=== PATIENT | female | born 2000 | race Hispanic/Latino ===

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

== ENCOUNTER 2019-03-04 00:51 | Inpatient (IN) | payer OTHER ==
[2019-03-04] MEDS ORDERED: CARBOPROST TROME 250 MCG/ML IM ONE (01:33)
[2019-03-04 01:34] LABS: Absolute Lymphocytes (CBC) 1.9 K/uL (0.7-4.9); Basophils % 0.5 % (0-1.3); Hematocrit 25.1 % (36.0-45.0); MPV 8.7 fL (7.6-11.3); RBC Red Blood Cell Count 2.99 M/uL (3.86-4.86)
[2019-03-04] MEDS ORDERED: METHYLERGONOVINE 0.2MG/ML AMP IM ONE (01:34)
[2019-03-04] MEDS ORDERED: CARBOPROST TROME 250 MCG/ML IM PRN (02:23)
[2019-03-04] MEDS ORDERED: METHYLERGONOVINE 0.2 MG TAB PO PRN (02:23)
[2019-03-04] MEDS ORDERED: NALOXONE 0.4 MG/ML VIAL IV PRN ×2 (02:23→02:49)
[2019-03-04] MEDS ORDERED: METHYLERGONOVINE 0.2MG/ML AMP IM PRN (02:23)
[2019-03-04] MEDS ORDERED: ONDANSETRON 4 MG (ODT) TAB PO PRN (02:23)
--- NOTE | 2019-03-04 02:28 | P.BOP ---
Preoperative diagnosis: 36 wk , placental abrubtion Postoperative diagnosis: same, viable female , breech presentation Primary procedure: , breech delivery Estimated blood loss: 1000ml Specimen: placenta Anesthesia: General Complications: None Transferred to: Other (271) Condition: Good
[2019-03-04] MEDS ORDERED: FENTANYL CITR 250 MCG/5 ML ONE (02:34)
[2019-03-04] MEDS ORDERED: SUCCINYLCHOLINE 20 MG/ML (10 ML) IV ONE (02:35)
[2019-03-04] MEDS ORDERED: NEOSTIGMINE 1 MG/ML -10 ML VIAL ONE (02:35)
[2019-03-04] MEDS ORDERED: GLYCOPYRROLATE 0.2 MG/ML SYR ONE (02:35)
[2019-03-04] MEDS ORDERED: ROCURONIUM 50 MG/5 ML VIAL IV ONE (02:36)
[2019-03-04] MEDS ORDERED: OXYTOCIN 10 UNIT/ML ML IV ONE (02:36)
[2019-03-04] MEDS ORDERED: MORPHINE/NS PCA 50 MG/50 ML PCA.SYRING IV PRN (02:49)
[2019-03-04] MEDS ORDERED: CEFAZOLIN 2 GM in NA CHLORIDE 0.9% 100 ML IVPB ONE (02:59)
[2019-03-04] MEDS: OXYTOCIN/LR 20 UNIT/1,000 ML BAG IV SCH ×4 (03:00→19:20)
[2019-03-04] MEDS ORDERED: MORPHINE 4 MG/ML SYR ONE (03:18)
[2019-03-04] MEDS ORDERED: CEFAZOLIN/SWI 2gm 2 GM/20 ML SYR ONE (03:48)
[2019-03-04 04:07] VITALS: BMI 31.8
--- NOTE | 2019-03-04 06:41 | PREOPHP ---
Date of Admission: 03/04/2019 History Of Present Illness: Ms. Esquivel is 18-year-old female, 1, para 0, at appr oximately 36 plus weeks gestation. She has been followed through [facility] with complications of labor. She presents with spontaneous rupture of membranes, started Labor and Delivery with complaint s of spontaneous rupture of membranes at our Labor and Delivery Unit. On initial exam, large amount of blood was noted. Baby's heart rate was below 100. Because of this, she was taken immediately to the back for surgery. Past Medical History: Includes no prior hospitalizations, accidents, illnesses, injuries other than admission for labor during this . Medications: She is on no medications other than vitamins. Allergies: HAS NO KNOWN ALLERGIES. Social History: She does not smoke. Family History: Noncontributory. Review of Systems: Reports no recent cough, cold, fever, or chills. No recent nausea or vomiting. No urine symptoms or bowel issues. Physical Examination: General: Reveals pale appearing female, in moderate discomfort. Neck: Supple without adenopathy or thyromegaly. Lungs: Clear. Cardiac: Regular rate and rhythm without murmurs. Breasts: Not examined. Abdomen: Estimated weight of 6 pounds. Pelvic: Not performed by me. Extremities: No cyanosis, clubbing, or edema. Impression: 36+ week , spontaneous rupture of membranes with probable placental abruption. Plan: We will plan immediate section. Preparations are being made currently. YAEL/LAURE Voice ID: [id number]
[2019-03-04] MEDS ORDERED: OXYTOCIN/LR 20 UNIT/1,000 ML BAG IV SCH (12:00)
[2019-03-04] MEDS ORDERED: METHYLERGONOVINE 0.2 MG TAB PO SCH (12:00)
[2019-03-04] MEDS ORDERED: Ringers Lactate 1,000 ML IV ONE (12:34)
[2019-03-04 13:01] LABS: Absolute Lymphocytes (CBC) 1.1 K/uL (0.7-4.9); Basophils % 0.3 % (0-1.3); Hematocrit 20.3 % (36.0-45.0); Lymphocytes % 10.6 % (15.3-44.8); MPV 8.4 fL (7.6-11.3)
[2019-03-04] MEDS ORDERED: NA CHLORIDE 0.9% 500 ML ONE (15:32)
[2019-03-04] MEDS ORDERED: NA CHLORIDE 0.9% 1,000 ML IV SCH (16:00)
[2019-03-04] MEDS: METHYLERGONOVINE 0.2 MG TAB PO SCH ×2 (16:22→20:30)
--- NOTE | 2019-03-04 17:46 | OP ---
Surgeon: Abdullahi Sarkar MD Anesthesiologist: Dr. Reymundo Hernandez. Preoperative Diagnosis: 35+ week , placental abruption. Procedure: Primary section with general endotracheal anesthesia. Postoperative Diagnosis: 35+ week , placental abruption, delivery of viable female in dat breech presentation. Description Of Procedure: After the patient was prepped and draped for abdominal surgery, a general endotracheal anesthesia was obtained. A low transverse abdominal incision was made, carried down to the fascia. The fascia was incised with a combination of sharp and blunt dissection. This was from the underlying rectus muscles. These were divided in the midline. Peritoneum identified and incised. A bladder flap was created after incision of the vesicouterine peritoneum. A low-transverse uterine incision was made. Large blood clot was encountered. A 5 pounds 3 ounces female was delivered in dat breech presentation. The cord was clamped, cut, and the placed in a warmer attended to by nursing staff and Dr. Reymundo Hernandez, Anesthesia. Apgars were 4 and 7. Placenta was spontaneously expelled. Uterus was exteriorized. Uterus was closed in 2 layers with 0 Vicryl suture in a running nonlocking fashion, second layer used to imbricate the first. Vesicouterine peritoneum was reapproximated with a running suture of 3-0 Vicryl. The uterus was returned to peritoneal cavity, which was cleaned of amniotic fluid, debris, and blood clot. The rectus muscles were approximated in the midline with simple sutures of 0 Vicryl. The fascia was closed with a running suture of #1 Vicryl from either margin to the middle. Subcutaneous tissue closed with interrupted sutures of 3-0 Vicryl, and a subcuticular suture of 4-0 Monocryl was used to close the skin. The patient received 2 g of Ancef for antibiotic prophylaxis postoperatively. She was taken to recovery room in satisfactory condition with sponge and needle counts correct x2. The patient had SCDs in place and Wasserman catheter in place. Estimated total blood loss approximately 1000 cc. YAEL/LAURE Voice ID: [id number] Report ID: [id number] OMAR
[2019-03-05] MEDS: METHYLERGONOVINE 0.2 MG TAB PO SCH ×2 (00:20→04:35)
[2019-03-05 01:05] LABS: Hematocrit 23.9 % (36.0-45.0)
[2019-03-05] MEDS: OXYTOCIN/LR 20 UNIT/1,000 ML BAG IV SCH ×2 (01:40→11:12)
[2019-03-05 02:40] LABS: RPR (Rapid Plasma Reagin) NON-REACT (NON-REACT)
[2019-03-05 06:07] LABS: Absolute Lymphocytes (CBC) 1.4 K/uL (0.7-4.9); Basophils % 0.3 % (0-1.3); Hematocrit 25.2 % (36.0-45.0); Lymphocytes % 10.6 % (15.3-44.8); MPV 8.4 fL (7.6-11.3); RBC Red Blood Cell Count 2.92 M/uL (3.86-4.86)
[2019-03-05] MEDS ORDERED: Oxycodone HCl/Acetaminophen 1 TAB TAB PO PRN (06:30)
--- NOTE | 2019-03-05 06:34 | P.PN ---
Date of Service: 03/05/19 S-No complaints O-Pt received 2 units of PRBC's, bandage dry, vs stable, abdomen soft, post transfusion hct noted A-Satisfactory P-ambulate, d/c choi, advance diet, possible transfuse one more unit depending on how she is able to ambulate etc.
[2019-03-05] MEDS: Oxycodone HCl/Acetaminophen 1 TAB TAB PO PRN ×2 (11:12→19:52)
[2019-03-06] MEDS: Oxycodone HCl/Acetaminophen 1 TAB TAB PO PRN (06:34)
[2019-03-06 07:37] VITALS: BP 120/71; TEMP 99.5
[2019-03-06] MEDS ORDERED: MEASLES,MUMPS,RUBELLA VAC 0.5ML SQVAC ONE (08:59)
[2019-03-09 06:12] LABS: HBsAG Nonreactive (Nonreactive)
--- NOTE | 2019-03-09 09:44 | DS ---
Date of Discharge: 03/06/2019 Final Hospital Discharge Diagnoses: Approximately 35 and 6/7th weeks gestation, placental abruption, breech presentation, delivery by primary section. Complications: Iron deficiency anemia, blood loss anemia. Procedures: General endotracheal anesthesia, primary section, delivery by primary section, delivery of breech presentation . Hospital Course: The patient is a 18-year-old female, 1, para 0, at 35+ weeks gesta tion followed through the [facility]. She presented with vaginal bleeding. Diagnosis of placental abruption was made. She was taken immediately to section where she delivered a 5 pounds 3-o unce female , Apgars 4 and 7. Immediate postoperative course was complicated by anemia, treate d with transfusion of 2 units of packed red blood cells. She was dismissed on the second postoperati ve day to be seen back in my office in 1 week and final visit through the [facility] in 6 weeks. She was dismissed with prescription for Tylenol No. 3, #15, for pain relief. Lab work obtai samuel during this hospital stay included an admission hemoglobin and hematocrit of 9.1 and 25.1. She o nly received 2 units of packed red blood cells. Dismissal hemoglobin and hematocrit of 8.7 and 25.2. She was to continue taking her vitamins and had an iron tablet. She is RPR nonreactive an d is B positive blood type. YAEL/LAURE Voice ID: [id number] Report ID: [id number]
== END 2019-03-06 12:00 | disposition home or self-care (01) | DRG 788 ==
LOC: LAB 00:51 → 2ND-WC 01:24
PROVIDERS: ADMIT Specialist; ATTEND Specialist
PROC: 30283B1 Transfusion of Nonautologous 4-Factor Prothrombin Complex Concentrate into Vein, Percutaneous Approach (ICD-10-PCS; 2019-03-04)
PROC: 10D00Z1 Extraction of Products of Conception, Low, Open Approach (ICD-10-PCS; principal; 2019-03-04 01:30)
DX: O45.93 Premature separation of placenta, unspecified, third trimester (principal); O32.1XX0 Maternal care for breech presentation, not applicable or unspecified; O99.02 Anemia complicating childbirth; D50.9 Iron deficiency anemia, unspecified; Z3A.35 35 weeks gestation of pregnancy; Z37.0 Single live birth; Z23 Encounter for immunization
CPT/HCPCS: 36415; 36430; 85014; 85018; 85025; 86592; 86850; 86900; 86901; 87340; 88307; 90471; 90707; J0330; J0690; J2210; J2270; J2590; J2710; J3010; P9016

== ENCOUNTER 2022-03-03 04:13 | Emergency (ER) | payer OTHER ==
--- OUTSIDE RECORDS SUMMARY | 2022-03-03 04:16 | XMS REPORT | Continuity of Care Document ---
:2000 Author Organization [facility] t Address [address] [place] [address] Care Team Providers Name Role Phone WESTON SKY Primary Care Physician Unavailable WESTON SKY Attending Clinician Unavailable Visit, Camilla Nurse Attending Clinician Unavailable Weston Cagle Attending Clinician [phone] Payers Payer Name Policy Type Policy Number Effective Date Expiration Date [facility] [employer] [id number] 2016 HEALTH 00:00:00 Problems Condition Condition Condition Status Onset Resolution Last Treating Co mments Source Name Details Category Date Date Treatment Clinician Date Other Other Disease Active Univers general general 1-05 [place] of counseling [place] advice and advice 00 Me dical for for Branch contracept contracept khalif khalif management management Need for Need for Disease Active Unive rs HPV HPV 1-05 ity of vacc[place] Medical Branch Allergies, Adverse Reactions, Alerts Allergy Allergy Status Severity Reaction(s) Onset Inactive Treating Comm ents Source Name Type Date Date Clinician NO KNOWN Drug Active Univers ALLERGIE Class ity of S [facility] Social History Social Habit Start Date Stop Date Quantity Comments Source Exposure to Not sure [facility] SARS-CoV-2 (event) [facility] Alcohol intake 2020-09-12 2020-09-12 Current [facility] 00:00:00 00:00:00 non-drinker of [facility] alcohol Branch (finding) Tobacco use and 2020-06-13 2020-06-13 Never used Universit y of exposure 00:00:00 00:00:00 [facility] Cigarettes smoked 2020-06-13 2020-06-13 Univers ity of current (pack per 00:00:00 00:00:[address] [facility] ) - Reported Branch History of tobacco 2019-08-31 Cigarette Smoker University of use 00:00:00 [facility] Sex Assigned At [birth year] Universit y of 00:00:00 00:00:00 [facility] Smoking Status Start Date Stop Date Source Current every day smoker 2020-06-13 00:00:00 Uni versity of [facility] Medications Ordered Filled Start Stop Current Ordering Indication Dosage Frequency Signature Comments Components Source Medication Medication Date Date Medication? Clinician (SIG) Name Name medroxyPROG No [id number] 150mg 150 mg, Univers ESTERone 06-13 Intramuscu ity of (DEPO-PROVE 21:45: 21:45 margaret [place] ) 00 :00 [id number], Medical injection 4 doses, Branch 150 mg First dose on Fri06/13/20 at 1545, Last dose on Fri02/20/21 at 1545, Routine docusate 2019-06 Yes [id number] 240mg Take 1 U nivers calcium 240 1-26 capsule by it y of mg capsule 00:00: mouth [place] 00 daily as Medical needed for Branch Constipati on. ferrous 2019-06 Yes [id number] 325mg Take 1 Un mavis sulfate 325 1-26 tablet by ity of mg (65 mg 00:00: mouth 2 [place] iron) 00 (two) Medical tablet times Branch daily. ibuprofen 2019-06 Yes [id number] 600mg Take 1 Univers 600 mg 1-26 tablet by ity of tablet 00:00: mouth [place] 00 every 6 Medical (six) Branch hours as needed (Pain). Take with food or milk. 2019-06 Yes [id number] 1{tbl} Take 1 Univers vitamin 1-26 tablet by ity of w/FA tablet 00:00: mouth [place] 00 daily. Medical Branch ascorbic Yes [id number] 500mg Take 1 U nivers acid, 8-25 tablet by ity of vitamin C, 00:00: mouth [place] 500 mg 00 (three) Medical tablet times [place] daily. ferrous 2019- Yes [id number] 325mg Take 1 Un mavis sulfate 325 8-25 tablet by ity of mg (65 mg 00:00: mouth 2 [place] iron) 00 (two) Medical tablet times [place] daily. Immunizations Ordered Filled Immunization Date Status Comments Sourc e Immunization Name Name [facility] 2020-12-26 Completed [facility] 00:00:00 [facility] HPV9 2020-06-13 Completed [facility] 00:00:00 [facility] HPV9 2020-05-03 Completed [facility] 00:00:00 [facility] Influenza Virus 2020-03-20 Completed [facility] Vaccine Quad .5 mL 00:00:00 [facility] 6+ MO Branch TDAP 2020-02-17 Completed [facility] 00:00:00 [facility] TDAP (ADACEL) 2019-01-12 Completed [facility] VACCINE 00:00:00 [facility] Vital Signs Vital Name Observation Time Observation Value Comments Source Systolic blood 2021-05-28 20:18:00 96 mm[Hg] Univer sity of pressure [facility] Diastolic blood 2021-05-28 20:18:00 60 mm[Hg] Unive rsity of pressure [facility] Heart rate 2021-05-28 20:18:00 70 /min [facility] Body temperature 2021-05-28 20:18:00 36.67 Dorothy [facility] Respiratory rate 2021-05-28 20:18:00 16 /min [facility] Body height 2021-05-28 20:18:00 162.6 cm [facility] Body weight 2021-05-28 20:18:00 57.153 kg [facility] BMI 2021-05-28 20:18:00 21.63 kg/m2 [facility] Procedures Procedure Date / Time Performed Performing Clinician Moise e POCT TEST 2021-05-28 00:00:00 [facility] Start End Encounter Admission Attending Care Care Encounter Source Date/Time Date/Time Type Type Clinicians Facility Department ID 2021-08-20 2021-08-20 Outpatient R [facility] [id number] [facility] 09:00:00 09:00:00 WESTON baca [facility] 2021-05-28 2021-05-28 Nurse Visit, Grabiel-Rmchp Nurse [facility] [id number] [facility] 14:00:00 14:31:52 Visit Weston Sky REGISTERED HEALTH NURSE [id number] ity [facility] [id number] Kelvin as MATERNAL [id number] Med ical & CHILD [address] [place] [address] Results Test Description Test Time Test Comments Results Result Comments Source POCT TEST 2021-05-28 20:25:00 Test Item Value Reference Range Interpretation Comme nts POCT PREG (test code = 1605) Negative On board controls acceptable with C Line (test code = 3574) Yes POCT PREG LOT # (test code = 3575) POCT PREG TEST DATE (test code = 3576) [facility]
[2022-03-03] MEDS ORDERED: NA CHLORIDE 0.9% 1,000 ML ONE ×2 (04:36→07:45)
[2022-03-03 04:49] LABS: Absolute Lymphocytes (CBC) 1.5 K/uL (0.7-4.9); Hematocrit 33.8 % (36.0-45.0); MCV 87.9 fL (80-100); MPV 7.5 fL (7.6-11.3); RBC Red Blood Cell Count 3.85 M/uL (3.86-4.86)
[2022-03-03 04:56] LABS: Urine Blood 3+ (Negative); Urine Glucose Negative (Negative); Urine Protein 3+ (Negative); Urine Specific Gravity 1.015 (1.005-1.030)
[2022-03-03 04:58] LABS: Potassium 3.6 mmol/L (3.5-5.1)
[2022-03-03 05:15] LABS: Barbiturates NEGATIVE (NEGATIVE); Benzodiazepines NEGATIVE (NEGATIVE); Cocaine NEGATIVE (NEGATIVE); METHAMPHETAM NEGATIVE (NEGATIVE); Methadone NEGATIVE (NEGATIVE); Opiates NEGATIVE (NEGATIVE); Phencyclidine NEGATIVE (NEGATIVE); THC Cannibis NEGATIVE (NEGATIVE)
[2022-03-03] MEDS ORDERED: CEFTRIAXONE 1000 MG/VIAL ONE (05:55)
[2022-03-03 06:02] LABS: Urine Specific Gravity/Preg 1.015 (1.005-1.030)
--- NOTE | 2022-03-03 09:54 | ER ---
Nurse's Notes [facility] Name: Nilsa Esquivel Age: 21 yrs Sex: Female : 2000 Arrival Date: 03/03/2022 Time: 04:15 Bed 4 Private MD: Diagnosis: Alcohol use, unspecified with intoxication;Possible drug use;Nausea and vomiting Presentation: 03/03 04:18 Chief complaint: EMS states: pt was found in [employer] bathroom after a reported night of as6 drinking. Coronavirus screen: At this time, the client does not indicate any symptoms associated with coronavirus-19. Ebola Screen: No symptoms or risks identified at this time. Initial Sepsis Screen: Does the patient meet any 2 criteria? No. Patient's initial sepsis screen is negative. Does the patient have a suspected source of infection? No. Patient's initial sepsis screen is negative. Risk Assessment: Do you want to hurt yourself or someone else? Unable to obtain. Onset of symptoms was March 03, 2022. 04:18 Method Of Arrival: EMS: [facility] as6 04:18 Acuity: MILI 2 as6 04:35 Care prior to arrival: Medication(s) given: Normal saline infusion, 500 mL, Phenergan, as6 25 mg, IV initiated. 20 GA, in the left antecubital area. 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 - Social history:: Smoking status: unknown. Screenin:21 Abuse screen: Denies threats or abuse. Denies injuries from another. Nutritional as6 screening: No deficits noted. Tuberculosis screening: No symptoms or risk factors identified. Fall Risk None identified. Assessment: 04:20 General: Appears unkempt, Behavior is drowsy, uncooperative, Smells of alcohol. Pain: as6 Denies pain. Neuro: Level of Consciousness is lethargic. Respiratory: Respiratory effort is even, unlabored. 04:21 General: pt friend reported they were drinking and met some guys and she thinks pt as6 drank an unknown substance from said guyaneli . 05:50 General: Appears comfortable, unkempt, Behavior is drowsy, quiet, pt eyes closed, low aa9 beverly's position, lights off in room, blanket over pt covering head, breathing equal and regular, does not appear distressed. . 06:52 General: Appears comfortable, Behavior is drowsy, quiet. General: pt eyes closed, aa9 breathing equal and regular, low beverly's position in bed, no apparent distress . Respiratory: Airway is patent Respiratory effort is even, unlabored, Respiratory pattern is regular, symmetrical. 07:15 General: Appears in no apparent distress. comfortable, Behavior is cooperative, quiet. kr3 08:15 Reassessment: No changes from previously documented assessment. Patient and/or family kr3 updated on plan of care and expected duration. Pain level reassessed. 09:15 Reassessment: No changes from previously documented assessment. Patient and/or family kr3 updated on plan of care and expected duration. Pain level reassessed. 10:26 Reassessment: No changes from previously documented assessment. Patient and/or family kr3 updated on plan of care and expected duration. Pain level reassessed. Vital Signs: 04:18 BP 91 / 55; Pulse 86; Resp 16; Pulse Ox 99% on R/A; Weight 60.78 kg; as6 04:30 Pulse 84; Resp 16 S; Pulse Ox 96% on R/A; aa9 05:16 BP 97 / 67; Pulse 83; Resp 16 S; Pulse Ox 96% on R/A; as6 05:54 BP 106 / 64; Pulse 77; Resp 16 S; Pulse Ox 97% on R/A; as6 06:30 BP 96 / 67; Pulse 77; Resp 17 S; Pulse Ox 98% on R/A; as6 07:30 BP 109 / 76; Pulse 69; Resp 16; Pulse Ox 97% ; kr3 08:30 BP 95 / 59; Pulse 79; Resp 16; Pulse Ox 98% on R/A; kr3 09:30 BP 97 / 52; Pulse 60; Resp 17; Pulse Ox 98% on R/A; kr3 10:22 BP 100 / 63; Pulse 84; Resp 17; Pulse Ox 99% on R/A; kr3 ED Course: 04:15 Patient arrived in ED. aa9 04:17 Giselle Curry MD is Attending Physician. sd2 04:18 Christopher Shah, WINSTON is Primary Nurse. as6 04:20 Triage completed. as6 04:20 Arm band placed on. as6 04:21 Bed in low position. Call light in reach. Side rails up X2. Client placed on continuous as6 cardiac and pulse oximetry monitoring. NIBP monitoring applied. Warm blanket given. 04:35 CBC with Diff Sent. as6 04:35 BMP Sent. as6 04:35 Ethanol Sent. as6 04:35 Maintain EMS IV. Dressing intact. Good blood return noted. Site clean \T\ dry. Gauge \T\ as 6 site: 20g LAC. 04:59 Urine Drug Screen Sent. aa9 04:59 Ethanol Sent. aa9 07:32 Attending Physician role handed off by Giselle Curry MD rn 07:32 Mohamud Cueto MD is Attending Physician. rn 08:15 IV discontinued, intact, bleeding controlled, No redness/swelling at site. Pressure kr3 dressing applied. 08:15 Inserted saline lock: 22 gauge in right antecubital area, using aseptic technique. kr3 10:23 No provider procedures requiring assistance completed. kr3 Administered Medications: 04:35 Drug: NS 0.9% 1000 ml Route: IV; Rate: 1 bolus; Site: left antecubital; as6 05:49 Follow up: Response: No adverse reaction; IV Status: Completed infusion; IV Intake: aa9 1000ml 05:49 Drug: Rocephin (cefTRIAXone) 1 grams Route: IV; Rate: bolus; Site: left antecubital; aa9 06:19 Follow up: Response: No adverse reaction; IV Status: Completed infusion; IV Intake: [id number] 07:48 Drug: NS 0.9% 1000 ml Route: IV; Rate: 1 bolus; Site: left antecubital; kr3 10:23 Follow up: Response: No adverse reaction; IV Status: Completed infusion; IV Intake: kr3 1000ml Medication: 04:21 VIS not applicable for this client. as6 Intake: 05:49 IV: 1000ml; Total: 1000ml. aa9 06:19 IV: 10ml; Total: 1010ml. aa9 10:23 IV: 1000ml; Total: 2010ml. kr3 Outcome: 09:54 Discharge ordered by . rn 10:23 Discharged to home ambulatory. kr3 10:23 Condition: stable 10:23 Discharge instructions given to patient, Instructed on discharge instructions, safety practices, Demonstrated understanding of instructions. 10:24 Patient left the ED. kr3 Signatures: Mohamud Cueto MD MD rn Slawson, Ashby, RN RN as6 Giselle Curry MD MD sd2 Ingris Walsh RN RN aa9 Cadence Mays RN RN kr3
--- NOTE | 2022-03-03 09:54 | EDPHYS ---
Physician Documentation [facility] Name: Nilsa Esquivel Age: 21 yrs Sex: Female : 2000 Arrival Date: 03/03/2022 Time: 04:15 Bed 4 Private MD: ED Physician Mohamud Cueto HPI: 03/03 04:20 This 21 yrs old Female presents to ER via EMS with complaints of AMS. sd2 04:20 21 yo F presents via EMS with CC of AMS. EMS reports patient was found unresponsive in sd2 [employer] bathroom tonight with her friend who was also unresponsive and brought to the ER. Pt did have nausea and vomiting en route and was given 25 mg of Phenergan COLD ROLLER with EMS. Pt was A\T\Ox3 with EMS but is unable to answer most of my questions here and appears drowsy. Therefore, further history is limited at this time. Pt's friend also in the ER reports they went to a [place] and drank ETOH tonight and were given open drinks by 2 guys but chose not to drink them.. 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 - Social history:: Smoking status: unknown. ROS: 04:20 Unable to obtain ROS due to altered mental status. sd2 Exam: 04:20 Constitutional: This is a well developed, well nourished patient who is awake, alert, sd2 and in no acute distress. Head/Face: Normocephalic, atraumatic. Eyes: EOMI, normal conjunctiva bilaterally Chest/axilla: Normal chest wall appearance and motion. Nontender with no deformity. Cardiovascular: Regular rate and rhythm with a normal S1 and S2. No gallops, murmurs, or rubs. 2+ distal pulses. Respiratory: Lungs have equal breath sounds bilaterally, clear to auscultation and percussion. No rales, rhonchi or wheezes noted. No increased work of breathing, no retractions or nasal flaring. Abdomen/GI: Soft, non-tender, with normal bowel sounds. No guarding or rebound. No evidence of tenderness throughout. Skin: Warm, dry with normal turgor. Normal color with no rashes, no lesions, and no evidence of cellulitis. MS/ Extremity: Pulses equal, no cyanosis. Neurovascular intact. Full, normal range of motion. Ambulatory without difficulty. Neuro: Pt observed moving all 4 extremities equally with good strength, normal sensation, pt otherwise uncooperative with exam Vital Signs: 04:18 BP 91 / 55; Pulse 86; Resp 16; Pulse Ox 99% on R/A; Weight 60.78 kg; as6 04:30 Pulse 84; Resp 16 S; Pulse Ox 96% on R/A; aa9 05:16 BP 97 / 67; Pulse 83; Resp 16 S; Pulse Ox 96% on R/A; as6 05:54 BP 106 / 64; Pulse 77; Resp 16 S; Pulse Ox 97% on R/A; as6 06:30 BP 96 / 67; Pulse 77; Resp 17 S; Pulse Ox 98% on R/A; as6 07:30 BP 109 / 76; Pulse 69; Resp 16; Pulse Ox 97% ; kr3 08:30 BP 95 / 59; Pulse 79; Resp 16; Pulse Ox 98% on R/A; kr3 09:30 BP 97 / 52; Pulse 60; Resp 17; Pulse Ox 98% on R/A; kr3 10:22 BP 100 / 63; Pulse 84; Resp 17; Pulse Ox 99% on R/A; kr3 MDM: 04:17 Patient medically screened. sd2 04:20 Differential Diagnosis ETOH, substance abuse, doubt ICH, dehydration among others. Data sd2 reviewed: vital signs, nurses notes, EMS record. 09:52 Counseling: I had a detailed discussion with the patient and/or guardian regarding: the rn historical points, exam findings, and any diagnostic results supporting the discharge/admit diagnosis, lab results, radiology results, the need for outpatient follow up, to return to the emergency department if symptoms worsen or persist or if there are any questions or concerns that arise at home. Response to treatment: the patient's symptoms have markedly improved after treatment, patient is well hydrated. Ambulatory to bathroom, wide awake now, will dc home. , and as a result, I will discharge patient. Special discussion: I discussed with the patient/guardian in detail that at this point there is no indication for admission to the hospital. It is understood, however, that if the symptoms persist or worsen the patient needs to return immediately for re-evaluation. 03/03 04:17 Order name: CBC with Diff; Complete Time: 05:05 sd2 03/03 04:17 Order name: BMP; Complete Time: 05:05 sd2 03/03 04:17 Order name: Ethanol; Complete Time: 05:16 sd2 03/03 04:17 Order name: Urine Drug Screen; Complete Time: 05:16 sd2 03/03 04:57 Order name: Urine Dipstick-Ancillary; Complete Time: 05:05 EDMS 03/03 05:02 Order name: Urine --Ancillary (enter results); Complete Time: 06:07 wm Administered Medications: 04:35 Drug: NS 0.9% 1000 ml Route: IV; Rate: 1 bolus; Site: left antecubital; as6 05:49 Follow up: Response: No adverse reaction; IV Status: Completed infusion; IV Intake: aa9 1000ml 05:49 Drug: Rocephin (cefTRIAXone) 1 grams Route: IV; Rate: bolus; Site: left antecubital; aa9 06:19 Follow up: Response: No adverse reaction; IV Status: Completed infusion; IV Intake: [id number] 07:48 Drug: NS 0.9% 1000 ml Route: IV; Rate: 1 bolus; Site: left antecubital; kr3 10:23 Follow up: Response: No adverse reaction; IV Status: Completed infusion; IV Intake: kr3 1000ml Disposition Summary: 03/03/22 09:54 Discharge Ordered Location: Home rn Problem: new rn Symptoms: have improved rn Condition: Stable rn Diagnosis - Alcohol use, unspecified with intoxication rn - Possible drug use rn - Nausea and vomiting rn Followup: sd2 - With: Private Physician - When: 2 - 3 days - Reason: Recheck today's complaints, Continuance of care, Re-evaluation by your physician Discharge Instructions: - Discharge Summary Sheet sd2 - Alcohol Intoxication sd2 - Nausea and Vomiting, Adult sd2 Forms: - Medication Reconciliation Form rn - Thank You Letter rn - Antibiotic furnace caretaker - Prescription Opioid Use rn Signatures: Dispatcher [employer] Mohamud West MD MD rn Slawson, Ashby, RN RN [id number] Giselle Curry MD MD sd2 Ingris Walsh, RN RN aa9 Cadence Mays RN RN kr3 Amy Bee, ERUM DANIELSON sb4
[2022-03-04 21:00] VITALS: BP 100/63; O2SAT 99
== END 2022-03-03 10:24 | disposition home or self-care (01) ==
LOC: ER 04:13
DX: F10.929 Alcohol use, unspecified with intoxication, unspecified (principal); R11.2 Nausea with vomiting, unspecified
CPT/HCPCS: 96365; 96361; 85025; 80048; 36415; 80320; 81025; 81003; 80307; 99284; J7030 ×2

== ENCOUNTER 2025-04-01 09:04 | Emergency (ER) | payer SELFPAY ==
--- NOTE | 2025-04-01 10:12 | RAD REPORT ---
EXAMINATION: Transvaginal OB COMPARISON: None. HISTORY: VAGINAL BLEEDING TECHNIQUE: Real-time ultrasound was performed through the pelvis. A transvaginal scan was performed t o better visualize the intrauterine contents and adnexa. FINDINGS: Uterus is normal size measuring 8.7 x 5.6 x 4.8 cm. Endometrium appears thickened measuring 13 mm. No IUP is seen. Both ovaries are normal in size, shape and echotexture with normal blood flow. No pelvic ascites. IMPRESSION: Mildly thickened endometrial stripe. No IUP is confirmed. In the setting of a positive hCG level, this would indicate of unknown location. Serial hCG level measurements and follow-up pelvic sonography in 7-10 days would be recommended.
[2025-04-01 10:44] LABS: Absolute Lymphocytes (CBC) 1.6 K/uL (0.7-4.9); Hematocrit 39.6 % (36.0-45.0); Hemoglobin 13.3 g/dL (12.0-15.0); MCH 30.0 pg (27.0-35.0); MCHC 33.6 g/dL (32.0-36.0); MCV 89.5 fL (80-100); MPV 8.1 fL (7.6-11.3); Nucleated RBC Absolute Count 0.0 (0-0); Nucleated Red Blood Cells % 0.0 % (0-0); RBC Red Blood Cell Count 4.42 M/uL (3.86-4.86); White Blood Count 9.10 thou/uL (4.3-10.9)
[2025-04-01 11:00] LABS: Sqamous Epithelial None Seen /HPF (None Seen); Urine Crystals Unidentified Many /HPF (None Seen); Urine Culture Reflex Order REFLEXED; Urine Microscopic Reflex YN ORDER UMIC
[2025-04-01 11:07] LABS: Anion Gap 8.8 mEq/L (5.0-15.0); BUN Blood Urea Nitrogen 12.0 mg/dL (7-18); Glucose Level 89.0 mg/dL (74-106); HCG, Quantitative 17.0 mIU/mL (1-3); Potassium 3.8 mEq/L (3.5-5.1)
--- NOTE | 2025-04-01 11:47 | EDPHYS ---
Physician Documentation [facility] Name: Nilsa Esquivel Age: 24 yrs Sex: Female : 2000 Arrival Date: 04/01/2025 Time: 09:04 Bed 6 Private MD: ED Physician Dmitriy Rai HPI: 04/01 09:23 This 24 yrs old Female presents to ER via Unassigned with complaints of dr5 Vaginal Bleeding, + Preg <12wks. 09:23 The patient presents to the emergency department with vaginal bleeding, that is light, dr5 with no clots. The estimated gestational age is 6 weeks. course: Ultrasound: the patient has not had an ultrasound. Patient is a 24-year-old female with no past medical history coming in with vaginal bleeding without clots that started this morning. Patient denies abdominal cramps. Patient reports being approximately 6 weeks and has first OB appointment this next Friday. Patient denies nausea, vomiting, diarrhea, dysuria.. RECORD PRESSMAN: 09:23 3, Full Term 2, 0, unknown dr5 11:54 LMP N/A - , Not ap3 Historical: - PMHx: 09:24 Asthma; dr5 - Immunization history:: Adult Immunizations unknown. - Infectious Disease History:: Denies. - Social history:: Smoking status: unknown. ROS: 09:24 Constitutional: as per hpi dr5 Exam: 09:24 Constitutional: This is a well developed, well nourished patient who is awake, alert, dr5 and in no acute distress. Head/Face: Normocephalic, atraumatic. Eyes: Pupils equal round and reactive to light, extra-ocular motions intact. Lids and lashes normal. Conjunctiva and sclera are non-icteric and not injected. Cornea within normal limits. Periorbital areas with no swelling, redness, or edema. Neck: Trachea midline, no thyromegaly or masses palpated, and no cervical lymphadenopathy. Supple, full range of motion without nuchal rigidity, or vertebral point tenderness. No Meningismus. Chest/axilla: Normal chest wall appearance and motion. Nontender with no deformity. No lesions are appreciated. Cardiovascular: Regular rate and rhythm with a normal S1 and S2. Normal PMI, no JVD. No pulse deficits. Respiratory: Lungs have equal breath sounds bilaterally, clear to auscultation. No rales, rhonchi or wheezes noted. No increased work of breathing, no retractions or nasal flaring. Abdomen/GI: Soft, non-tender, non-distended Back: No spinal tenderness. No costovertebral tenderness. Full range of motion. Skin: Warm, dry with normal turgor. Normal color with no rashes, no lesions, and no evidence of cellulitis. MS/ Extremity: Pulses equal, no cyanosis. Neurovascular intact. Full, normal range of motion. Neuro: Awake and alert, GCS 15, oriented to person, place, time, and situation. Cranial nerves II-XII grossly intact. Motor strength 5/5 in all extremities. Sensory grossly intact. Cerebellar exam normal. Normal gait. Vital Signs: 09:24 BP 112 / 77; Pulse 53; Resp 16; Temp 97.9(O); Pulse Ox 99% on R/A; Weight 72.57 kg; ss Height 5 ft. 2 in. ; 11:52 BP 114 / 82; Pulse 51; Resp 17; Pulse Ox 100% ; ap3 09:24 Body Mass Index 29.26 (72.57 kg, 157.48 cm) ss MDM: 09:07 Medical Screening Exam initiated dr5 11:47 Differential diagnosis: threatened Ab, inevitable Ab, complete Ab, ectopic . dr5 Data reviewed: vital signs, nurses notes, lab test result(s), Beta HC CBC, white blood cell count, hemoglobin, hematocrit, platelets, electrolytes, sodium, potassium, chloride, serum bicarbonate, BUN, creatinine, serum glucose, urinalysis, bacteruria, hematuria, radiologic studies, ultrasound. Consideration of Admission/Observation Escalation of care including admission/observation considered. Escalation considered patient found to have ectopic . I considered the following discharge prescriptions or medication management in the emergency department I discussed and recommended Over The Counter medications. Care significantly affected by the following chronic conditions: Asthma. Care significantly affected by the following Social Determinants of Health: Poor access to healthcare and/or lack of insurance, Poor access to transportation, Problems related to employment. Counseling: I had a detailed discussion with the patient and/or guardian regarding the historical points, exam findings, and any diagnostic results supporting the discharge/admit diagnosis, the presence of at least one elevated blood pressure reading (>120/80) during this emergency department visit, lab results, radiology results, the need for outpatient follow up, for definitive care, an OB/Gyne specialist, to return to the emergency department if symptoms worsen or persist or if there are any questions or concerns that arise at home. Special discussion: I discussed with the patient/guardian in detail that at this point there is no indication for admission to the hospital. It is understood, however, that if the symptoms persist or worsen the patient needs to return immediately for re-evaluation. Based on the history and exam findings, there is no indication for further emergent testing or inpatient evaluation. I discussed with the patient/guardian the need to see the OB Gyne specialist for further evaluation of the symptoms. ED course: Recommended patient follow-up with RECORD PRESSMAN for repeat blood work and ultrasound. Discussed all labs and ultrasound results with patient and printed out and handed to patient myself. All questions answered. Strict ER precautions given. Will cover with abx for UTI.. 11:48 Data reviewed: lab test result(s), T\T\S - B Positive. dr5 04/01 09:23 Order name: Abo/rh Typing; Complete Time: 11:44 dr5 04/01 09:23 Order name: Basic Metabolic Panel; Complete Time: 11:08 dr5 04/01 09:23 Order name: CBC with Diff; Complete Time: 10:56 dr5 04/01 09:23 Order name: Quantitative Hcg; Complete Time: 11:08 dr5 04/01 09:25 Order name: UA Rfx Herber Cult if indicated; Complete Time: 11:06 dr5 04/01 11:05 Order name: Urine Culture EDLA 04/01 09:23 Order name: US Transvaginal Ob; Complete Time: 10:22 dr5 04/01 09:57 Order name: Abdomen Pelvis Scan\E\US; Complete Time: 11:22 EDMS 04/01 09:23 Order name: IV Saline Lock; Complete Time: 10:24 dr5 04/01 09:23 Order name: Labs collected and sent; Complete Time: 10:24 dr5 04/01 09:23 Order name: NPO; Complete Time: 09:30 dr5 Administered Medications: No medications were administered Disposition Summary: 04/01/25 11:47 Discharge Ordered Notes: Location: Home dr5 Condition: Stable dr5 Diagnosis - Abnormal uterine and vaginal bleeding, unspecified dr5 - UTI/ Urinary tract infection, site not specified dr5 Followup: dr5 - With: Emergency Department - When: As needed - Reason: Worsening of condition Followup: dr5 - With: Private Physician - When: 1 - 2 days - Reason: Recheck today's complaints, Continuance of care, Re-evaluation by your physician Discharge Instructions: - Discharge Summary Sheet dr5 - Threatened Miscarriage dr5 - Urinary Tract Infection, Adult, Jodf-[id number] dr5 Forms: - Medication Reconciliation Form dr5 - Antibiotic Education dr5 - Patient Portal Instructions dr5 - Leadership Thank You Letter dr5 Prescriptions: - Cephalexin 500 mg Oral Capsule - take 1 capsule ORAL route every 12 hours for 10 days; 20 capsule; Refills: 0, dr5 Product Selection Permitted Signatures: Dispatcher [employer] Violet Haywood RN RN Della Betts RN RN ap3 Reggie Nuñez, COLE-C TURNSTILE ATTENDANT-Cdr5 Corrections: (The following items were deleted from the chart) 09:23 09:23 Transvaginal Ob+US.RAD.BRZ ordered. EDMS EDMS
--- NOTE | 2025-04-01 11:47 | ER ---
Nurse's Notes [facility] Name: Nilsa Esquivel Age: 24 yrs Sex: Female : 2000 Arrival Date: 04/01/2025 Time: 09:04 Bed 6 Private MD: Diagnosis: Abnormal uterine and vaginal bleeding, unspecified;UTI/ Urinary tract infection, site not specified Presentation: 04/01 09:24 Chief complaint: Patient states: vaginal bleeding that began this morning. PT reports ss she is 5 weeks and is to have her first OB appt on Friday. Coronavirus screen: Client denies travel out of the [place] in the last 14 days. Ebola Screen: Patient denies exposure to infectious person. Patient denies travel to an Ebola-affected area in the 21 days before illness onset. Initial Sepsis Screen: Does the patient meet any 2 criteria? No. Patient's initial sepsis screen is negative. Does the patient have a suspected source of infection? No. Patient's initial sepsis screen is negative. Risk Assessment: Do you want to hurt yourself or someone else? Patient reports no desire to harm self or others. Onset of symptoms was April 01, 2025. 09:24 Method Of Arrival: Ambulatory ss 09:24 Acuity: MILI 3 ss INTERNATIONAL EXCHANGE COORDINATOR: 09:23 3, Full Term 2, 0, unknown dr5 11:54 LMP N/A - , Not ap3 Historical: - PMHx: 09:24 Asthma; dr5 - Immunization history:: Adult Immunizations unknown. - Infectious Disease History:: Denies. - Social history:: Smoking status: unknown. Screenin:53 [facility] ED Fall Risk Assessment (Adult) History of falling in the last 3 months, ap3 including since admission No falls in past 3 months (0 pts) Confusion or Disorientation No (0 pts) Intoxicated or Sedated No (0 pts) Impaired Gait No (0 pts) Mobility Assist Device Used No (0 pt) Altered Elimination No (0 pt) Score/Fall Risk Level 0 - 2 = Low Risk Oriented to surroundings, Maintained a safe environment, Educated pt \T\ family on fall prevention, incl call for assistance when getting out of bed, Assessed \T\ reinforced patient's understanding of fall precautions, Hourly rounding (assess needs \T\ fall precautionary measures) done, Used ambulatory aids as needed (educated on \T\ assisted with). Abuse screen: Denies threats or abuse. Nutritional screening: No deficits noted. Tuberculosis screening: No symptoms or risk factors identified. Assessment: 10:42 General: Appears in no apparent distress. Behavior is calm, cooperative, appropriate ap3 for age. Pain: Complains of pain in suprapubic area Pain currently is 6 out of 10 on a pain scale. Neuro: Level of Consciousness is awake, alert, obeys commands, Oriented to person, place, time, situation, Appropriate for age. Cardiovascular: Patient's skin is warm and dry. Respiratory: Airway is patent Respiratory effort is even, unlabored, Respiratory pattern is regular, symmetrical. : Reports vaginal bleeding that is. Vital Signs: 09:24 BP 112 / 77; Pulse 53; Resp 16; Temp 97.9(O); Pulse Ox 99% on R/A; Weight 72.57 kg; ss Height 5 ft. 2 in. ; 11:52 BP 114 / 82; Pulse 51; Resp 17; Pulse Ox 100% ; ap3 09:24 Body Mass Index 29.26 (72.57 kg, 157.48 cm) ED Course: 09:06 Patient arrived in ED. im 09:07 Dmitriy Rai MD is Attending Physician. sp3 09:07 Reggie Nuñez FNP-C is [facility]. dr5 09:24 Arm band placed on right wrist. ss 09:26 Triage completed. ss 09:55 US Transvaginal Ob In Process Unspecified. EDMS 09:57 Abdomen Pelvis Scan\E\US In Process Unspecified. EDMS 10:41 Initial lab(s) drawn, by me, sent to lab. Inserted saline lock: 22 gauge in right ap3 antecubital area, using aseptic technique. Blood collected. Flushed with 10 mL NS. 10:42 UA Rfx Herber Cult if indicated Sent. ap3 10:42 Abo/rh Typing Sent. ap3 10:42 Basic Metabolic Panel Sent. ap3 10:42 CBC with Diff Sent. ap3 10:43 Quantitative Hcg Sent. ap3 11:53 Patient has correct armband on for positive identification. Placed in gown. Bed in low ap3 position. Call light in reach. Side rails up X 1. Provided Education on: discharge instructions . Pulse ox on. NIBP on. :53 No provider procedures requiring assistance completed. IV discontinued, intact, ap3 bleeding controlled, No redness/swelling at site. Pressure dressing applied. Administered Medications: No medications were administered Medication: :53 VIS not applicable for this client. ap3 Outcome: 11:47 Discharge ordered by . dr5 :53 Discharged to home ap3 :53 Condition: good :53 Discharge instructions given to patient, Instructed on discharge instructions, follow up and referral plans. medication usage, :53 Demonstrated understanding of instructions, follow-up care, medications, Prescriptions given X 1, :54 Patient left the ED. ap3 Signatures: Dispatcher [employer] EDMS Blank Ortega, WINSTON RN aa5 Violet Rivas RN RN Della Betts RN RN ap3 Dmitriy Rai MD MD sp3 Aleksandra Gao Dustin, ASSEMBLER GOLD FRAME-C ASSEMBLER GOLD FRAME-Cdr5 Corrections: (The following items were deleted from the chart) 17:54 09:26 Blank Ortega, RN is Primary Nurse. aa5 aa5
[2025-04-01 13:48] VITALS: TEMP 97.9
[2025-04-01 13:49] VITALS: BP 114/82; O2SAT 100
== END 2025-04-01 11:54 | disposition home or self-care (01) ==
LOC: ER 09:04
DX: O23.41 Unspecified infection of urinary tract in pregnancy, first trimester (principal); Z3A.01 Less than 8 weeks gestation of pregnancy
CPT/HCPCS: 36415; 76817; 80048; 81001; 84702; 85025; 86900; 86901; 87086; 87088; 93975; 99284